=== PATIENT | female | born 1930 | race Caucasian/White ===

== ENCOUNTER 2018-05-05 04:05 | Inpatient (IN) | payer MEDICARE, MEDICAID ==
[~2018-05-05] VITALS: Ht 149.9 cm; Wt 54.9 kg
[~2018-05-05 04:05] MED LIST: ALEN70TA46 PO; AMLO10TA80 PO; ASPI-1079 PO; LISI-186 PO; ROBITUSSIN; SIMV20TA6 PO
[2018-05-05 04:43] LABS: EOSINOPHILS % 3.2 % (0.0-5.0); HEMATOCRIT. 35.9 % (36.0-48.0); LYMPHOCYTES % 55.5 % (20.0-50.0); MEAN CORPUSCULAR HEMOGLOBIN 34.3 pg (28.0-32.0); MEAN CORPUSCULAR VOLUME 103.2 fL (81.0-99.0); MONOCYTES % 10.1 % (2.0-8.0); NEUTROPHILS % 30.2 % (40.0-76.0); PLATELET 107 x1000/uL (130-400); RED BLOOD CELL COUNT 3.48 mill/uL (4.2-5.4); RED CELL DISTRIBUTION WIDTH 12.9 % (11.6-14.6)
[2018-05-05 04:44] LABS: CHLORIDE 110 mEq/L (98-107)
[2018-05-05] MEDS ORDERED: CALCIUM GLUCONATE 100MG/ML 10ML VIAL IV ONE (04:45)
[2018-05-05] MEDS ORDERED: SODIUM CHLORIDE 0.9% 1,000 ML IV ONE (04:45)
[2018-05-05 04:47] LABS: INR 1.1; PARTIAL THROMBOPLASTIN TIME 24.7 sec (23.4-31.0); PROTHROMBIN TIME 10.9 sec (9.1-11.1)
[2018-05-05 04:49] LABS: ETHANOL BLOOD < 10 mg/dL
[2018-05-05 04:53] LABS: CREATINE KINASE 175 IU/L (26-192)
[2018-05-05] MEDS ORDERED: ESMOLOL 2500MG PREMIX 250 ML IV ONE ×2 (06:15→06:30)
[2018-05-05 07:25] LABS: CLARITY URINE CLEAR (CLEAR); COLOR URINE YELLOW (YELLOW); KETONES URINE TRACE (NEGATIVE); LEUKOCYTE ESTERASE URINE NEGATIVE (NEGATIVE); NITRITE URINE NEGATIVE (NEGATIVE); OCCULT BLOOD URINE 2+ (NEGATIVE); PROTEIN URINE TRACE (NEGATIVE); SPECIFIC GRAVITY URINE 1.031 (1.005-1.030); UROBILINOGEN URINE 0.2 E.U./dL (0.2-1.0)
[2018-05-05] MEDS ORDERED: IOHEXOL-350 100 ML BOTTLE ONE (07:44)
[2018-05-05 08:14] LABS: CANNABINOID URINE SCREEN NEGATIVE (NEGATIVE); PHENCYCLIDINE URINE SCREEN NEGATIVE (NEGATIVE)
[2018-05-05 08:15] LABS: *AMPHETAMINES SCREEN URINE NEGATIVE (NEGATIVE); *BARBITURATES SCREEN URINE NEGATIVE (NEGATIVE); *BENZODIAZEPINES SCREEN URINE NEGATIVE (NEGATIVE); *COCAINE SCREEN URINE NEGATIVE (NEGATIVE); METHADONE URINE SCREEN NEGATIVE (NEGATIVE); OPIATES URINE SCREEN NEGATIVE (NEGATIVE)
[2018-05-05] MEDS ORDERED: NICARDIPINE 40MG/200ML PREMIX 200 ML IV PRN (08:30)
[2018-05-05] MEDS ORDERED: ACETAMINOPHEN 325MG TABLET PO PRN (09:45)
[2018-05-05] MEDS ORDERED: HYDRALAZINE 20MG/ML VIAL IV PRN ×2 (09:45→14:00)
[2018-05-05] MEDS: CLOPIDOGREL 75MG TABLET PO SCH (09:45)
[2018-05-05] MEDS ORDERED: LORAZEPAM 2MG/ML CPJ IV PRN (13:45)
[2018-05-05] MEDS ORDERED: IPRATROPIUM/ALBUTEROL 0.5-3(2.5)MG/3ML NEB INH PRN (13:45)
[2018-05-05] MEDS ORDERED: ACETAMINOPHEN 650MG SUPP PR PRN (13:45)
[2018-05-05] MEDS ORDERED: ONDANSETRON HCL 4MG/2ML VIAL IV PRN (13:45)
[2018-05-05 15:25] VITALS: BP 121/61
[2018-05-05 16:00] VITALS: BP 121/61
[2018-05-05] MEDS ORDERED: LEVETIRACETAM 500MG PREMIX 100 ML IV ONE (17:00)
[2018-05-05] MEDS ORDERED: HYDRALAZINE 10 MG in SODIUM CHLORIDE 0.9% 49.5 ML IV PRN (17:00)
[2018-05-05] MEDS ORDERED: DEXT 5%/0.45% NACL KCL 20MEQ/L 1,000 ML IV SCH (17:15)
[2018-05-05] MEDS ORDERED: POTASSIUM CHLORIDE INJ 30 MEQ in DEXT 5%/0.9% NACL 1,000 ML IV ONE (18:00)
[2018-05-05] MEDS ORDERED: ENOXAPARIN 30MG/0.3ML SYR SUBCUT SCH (18:00)
[2018-05-05] MEDS: DEXT 5%/0.9% NACL KCL 20MEQ/L 1,000 ML IV SCH ×2 (18:52→21:25)
[2018-05-05 20:00] VITALS: BP 156/69
[2018-05-06] VITALS: BP 150/71
[2018-05-06 04:00] VITALS: BP 113/52
[2018-05-06] MEDS ORDERED: POTASSIUM CHLORIDE INJ 30 MEQ in DEXT 5%/0.9% NACL 1,000 ML IV ONE (04:00)
[2018-05-06 07:30] LABS: BASOPHILS % 0.3 % (0.0-2.0); HEMATOCRIT. 34.1 % (36.0-48.0); HEMOGLOBIN. 11.6 g/dL (12.0-16.0); LYMPHOCYTES % 7.8 % (20.0-50.0); MEAN CORPUSCULAR HEMOGLOBIN 35.5 pg (28.0-32.0); MEAN CORPUSCULAR VOLUME 104.2 fL (81.0-99.0); MEAN PLATELET VOLUME 8.8 fl (7.4-10.4); MONOCYTES % 9.9 % (2.0-8.0); PLATELET 93 x1000/uL (130-400); RED BLOOD CELL COUNT 3.27 mill/uL (4.2-5.4); RED CELL DISTRIBUTION WIDTH 12.8 % (11.6-14.6)
[2018-05-06 08:00] VITALS: BP 138/75
[2018-05-06] MEDS: CLOPIDOGREL 75MG TABLET PO SCH (09:00)
[2018-05-06] MEDS: PANTOPRAZOLE SODIUM 40 MG/VIAL IV SCH (09:33)
[2018-05-06] MEDS ORDERED: IOHEXOL-350 100 ML BOTTLE ONE (11:04)
[2018-05-06] MEDS: LEVETIRACETAM 500MG in SODIUM CHLORIDE 0.9% 100ML IV SCH ×3 (11:15→21:01)
[2018-05-06 12:00] VITALS: BP 128/86
[2018-05-06 16:00] VITALS: BP 153/76
[2018-05-06] MEDS: DEXT 5%/0.45% NACL 1000ML 1,000 ML IV SCH (17:23)
[2018-05-06 20:00] VITALS: BP 103/79
[2018-05-07] VITALS: BP 125/62
[2018-05-07 04:00] VITALS: BP 152/65
[2018-05-07] MEDS: DEXT 5%/0.9% NACL KCL 20MEQ/L 1,000 ML IV SCH (04:55)
[2018-05-07 06:19] LABS: BASOPHILS % 0.4 % (0.0-2.0); HEMATOCRIT. 35.7 % (36.0-48.0); HEMOGLOBIN. 11.9 g/dL (12.0-16.0); LYMPHOCYTES % 9.6 % (20.0-50.0); MEAN CORPUSCULAR VOLUME 104.9 fL (81.0-99.0); MEAN PLATELET VOLUME 9.1 fl (7.4-10.4); MONOCYTES % 9.1 % (2.0-8.0); NEUTROPHILS % 80.9 % (40.0-76.0); PLATELET 87 x1000/uL (130-400); RED BLOOD CELL COUNT 3.41 mill/uL (4.2-5.4); RED CELL DISTRIBUTION WIDTH 13.4 % (11.6-14.6)
[2018-05-07 06:49] LABS: CHLORIDE 114 mEq/L (98-107)
[2018-05-07 06:54] LABS: PHOSPHORUS 2.4 mg/dL (2.5-4.9)
[2018-05-07 08:00] VITALS: BP 149/74
[2018-05-07] MEDS: DEXT 5%/0.45% NACL 1000ML 1,000 ML IV SCH ×2 (09:25→22:17)
[2018-05-07] MEDS: PANTOPRAZOLE SODIUM 40 MG/VIAL IV SCH (09:28)
[2018-05-07] MEDS: LEVETIRACETAM 500MG in SODIUM CHLORIDE 0.9% 100ML IV SCH ×2 (09:28→20:51)
[2018-05-07] MEDS ORDERED: POTASSIUM PHOS,M-BASIC-D-BASIC 15 MMOL in DEXT 5% WATER 245 ML IV NR (11:30)
[2018-05-07 12:00] VITALS: BP 111/87
[2018-05-07 16:00] VITALS: BP 102/55
[2018-05-07 20:00] VITALS: BP 159/74
[2018-05-08] VITALS: BP 151/89
[2018-05-08 04:00] VITALS: BP 153/81
[2018-05-08 07:30] LABS: BASOPHILS % 0.1 % (0.0-2.0); HEMATOCRIT. 37.1 % (36.0-48.0); HEMOGLOBIN. 12.5 g/dL (12.0-16.0); LYMPHOCYTES % 7.2 % (20.0-50.0); MEAN CORPUSCULAR HEMOGLOBIN 34.7 pg (28.0-32.0); MEAN CORPUSCULAR VOLUME 103.1 fL (81.0-99.0); MEAN PLATELET VOLUME 9.4 fl (7.4-10.4); MONOCYTES % 8.7 % (2.0-8.0); PLATELET 89 x1000/uL (130-400); RED CELL DISTRIBUTION WIDTH 12.6 % (11.6-14.6)
[2018-05-08 08:00] VITALS: BP 120/90
[2018-05-08] MEDS: LEVETIRACETAM 500MG in SODIUM CHLORIDE 0.9% 100ML IV SCH ×2 (09:55→21:23)
[2018-05-08] MEDS: PANTOPRAZOLE SODIUM 40 MG/VIAL IV SCH (09:55)
[2018-05-08 11:17] LABS: CHLORIDE 113 mEq/L (98-107)
[2018-05-08 11:23] LABS: PHOSPHORUS 2.1 mg/dL (2.5-4.9)
[2018-05-08 12:00] VITALS: BP 162/83
[2018-05-08 16:00] VITALS: BP 169/73
[2018-05-08] MEDS: DEXT 5%/0.45% NACL 1000ML 1,000 ML IV SCH (16:01)
[2018-05-08 20:00] VITALS: BP 164/70
[2018-05-09] VITALS: BP 187/76
[2018-05-09 04:00] VITALS: BP 169/87
[2018-05-09] MEDS: PANTOPRAZOLE SODIUM 40 MG/VIAL IV SCH (08:50)
[2018-05-09] MEDS: LEVETIRACETAM 500MG in SODIUM CHLORIDE 0.9% 100ML IV SCH (08:50)
[2018-05-09] MEDS ORDERED: MORPHINE SULFATE 250 MG in DEXT 5% WATER 240 ML IV SCH (09:30)
== END 2018-05-09 09:29 | disposition expired | DRG 64 ==
LOC: ER 04:05 → 6EST 06:31 → EDBEDREQSVC 06:33 → EDBEDREQTM 06:33 → EDBEDREQ 13:23 → EDBEDREQTM 13:29 → EDBEDREQSVC 13:29 → ENRESERV 13:52
PROVIDERS: ADMIT Internal Medicine; ATTEND Internal Medicine
DX: I63.512 Cerebral infarction due to unspecified occlusion or stenosis of left middle cerebral artery (principal); G93.49 Other encephalopathy; I13.0 Hypertensive heart and chronic kidney disease with heart failure and stage 1 through stage 4 chronic kidney disease, or unspecified chronic kidney disease; N13.30 Unspecified hydronephrosis; Z66 Do not resuscitate; I49.3 Ventricular premature depolarization; I48.0 Paroxysmal atrial fibrillation; Z95.3 Presence of xenogenic heart valve; E88.09 Other disorders of plasma-protein metabolism, not elsewhere classified; Z51.5 Encounter for palliative care; N18.3 Chronic kidney disease, stage 3 (moderate); M81.0 Age-related osteoporosis without current pathological fracture; M48.02 Spinal stenosis, cervical region; I50.9 Heart failure, unspecified; D69.6 Thrombocytopenia, unspecified; D86.9 Sarcoidosis, unspecified; G31.84 Mild cognitive impairment of uncertain or unknown etiology; I27.20 Pulmonary hypertension, unspecified; E11.22 Type 2 diabetes mellitus with diabetic chronic kidney disease; E78.5 Hyperlipidemia, unspecified; G40.909 Epilepsy, unspecified, not intractable, without status epilepticus; I25.10 Atherosclerotic heart disease of native coronary artery without angina pectoris; I08.1 Rheumatic disorders of both mitral and tricuspid valves; I48.2 Chronic atrial fibrillation; I65.22 Occlusion and stenosis of left carotid artery; R13.10 Dysphagia, unspecified; Z79.899 Other long term (current) drug therapy; Z83.3 Family history of diabetes mellitus; Z85.89 Personal history of malignant neoplasm of other organs and systems; Z98.42 Cataract extraction status, left eye; Z79.82 Long term (current) use of aspirin; Z88.8 Allergy status to other drugs, medicaments and biological substances
CPT/HCPCS: 36415; 70450; 70496; 70498; 70551; 71275; 74174; 80048; 80053; 80061; 80305; 80307; 80329; 81003; 82550; 83036; 83605; 83735; 83880; 84100; 84443; 84484; 85025; 85610; 85730; 93005; 93306; 96365; 96367; 96372; 96375; 99291; C9113; G0482; J0360; J0610; J1650; J1953; J2274; J3480; J3490; J7030; J7042; J7050; J7060; Q9967; A4315